=== PATIENT | female | born 1985 | race Caucasian/White ===

== ENCOUNTER 2020-01-25 07:40 | Emergency (ER) | payer MEDICAID ==
--- NOTE | 2020-01-25 08:19 | RADIOLOGY REPORT (SQ) ---
EXAM DESCRIPTION: CHEST 2 VIEWS IMAGES COMPLETED DATE/TIME: 01/25/2020 8:10 am REASON FOR STUDY: chest pain COMPARISON: None. EXAM PARAMETERS: NUMBER OF VIEWS: two views TECHNIQUE: Digital Frontal and Lateral radiographic views of the chest acquired. RADIATION DOSE: NA LIMITATIONS: none FINDINGS: LUNGS AND PLEURA: No opacities, masses or pneumothorax. No pleural effusion. MEDIASTINUM AND HILAR STRUCTURES: No masses or contour abnormalities. HEART AND VASCULAR STRUCTURES: Heart normal size. No evidence for failure. BONES: No acute findings. HARDWARE: None in the chest. OTHER: No other significant finding. IMPRESSION: NO ACUTE RADIOGRAPHIC FINDING IN THE CHEST. TECHNICAL DOCUMENTATION: JOB ID: [id number] [employer]- All Rights Reserved Reading location - IP/workstation name: [email or web address]
[2020-01-25 08:32] LABS: ABSOLUTE BASOPHILS # (AUTO) 0.1 10^3/uL (0.0-0.2); ABSOLUTE LYMPHOCYTES (AUTO) 1.4 10^3/uL (0.5-4.7); ABSOLUTE MONOCYTES (AUTO) 0.2 10^3/uL (0.1-1.4); ABSOLUTE NEUT (AUTO) 2.8 10^3/uL (1.7-8.2); BASOPHILS % (AUTO) 1.3 % (0-2); EOSINOPHILS % (AUTO) 0.9 % (0-6); HEMATOCRIT 39.2 % (36.0-47.0); HEMOGLOBIN 13.5 g/dL (12.0-15.5); MEAN CORPUSCULAR HEMOGLOBIN 30.9 pg (27.0-33.4); MEAN CORPUSCULAR HGB CONC 34.4 g/dL (32.0-36.0); MEAN CORPUSCULAR VOLUME 90 fl (80-97); MONOCYTES % (AUTO) 4.9 % (3-13); PLATELET COUNT 200 10^3/uL (150-450); RED BLOOD COUNT 4.36 10^6/uL (3.72-5.28); SEGMENTED NEUTROPHILS % (AUTO) 61.9 % (42-78); TOTAL CELLS COUNTED % (AUTO) 100 %; WHITE BLOOD COUNT 4.6 10^3/uL (4.0-10.5)
[2020-01-25 08:52] LABS: ALBUMIN 4.7 g/dL (3.5-5.0); ALKALINE PHOSPHATASE 42 U/L (38-126); ANION GAP 6 (5-19); ASPARTATE AMINO TRANSFERASE 21 U/L (14-36); BLOOD UREA NITROGEN 8 mg/dL (7-20); CALCIUM 9.8 mg/dL (8.4-10.2); CARBON DIOXIDE 26 mmol/L (22-30); CHLORIDE 106 mmol/L (98-107); CREATINE KINASE 45 U/L (30-135); GLUCOSE 99 mg/dL (75-110); POTASSIUM 4.4 mmol/L (3.6-5.0); TOTAL PROTEIN 7.7 g/dL (6.3-8.2)
[2020-01-25 09:02] LABS: CREATINE KINASE MB 0.27 ng/mL (<4.55)
[2020-01-25 09:24] LABS: TROPONIN I < 0.012 ng/mL
--- NOTE | 2020-01-25 12:09 | ER Document Report ---
ED General - General Chief Complaint: Chest Pain Stated Complaint: CHEST PAIN Time Seen by Provider: 01/25/20 07:59 - HPI Notes: Chief complaint: Chest pain History of present illness: 34-year-old female with past history of left-sided herpes zoster involving the chest area on number of months ago comes in today reporting that she is intermittently having sharp burning and stabbing sensation across left anterior chest area sometimes worse after eating but not consistently related to exertion or respiration. This is gotten a little worse recently although it tends to be transient and intermittent. She discussed this with her primary care doctor by telephone and was told to come here today for evaluation. Patient notes that at the time of her obstetrical delivery at [facility] several years ago her was told which she "might have had a mini heart attack" she is not aware of any other cardiac history. She says she was not seen by physical anthropologist at that time and did not undergo cardiac catheterization. She is not being treated for hypertension, hyperlipidemia or diabetes mellitus. She has no history of thromboembolic disease. Her family history is remarkable for several older individuals with CAD. She is a non-smoker. HEART Score: HISTORY 1 ECG 0 AGE 0 RISK FACTORS 1 TROPONIN 0 TOTAL: If HEART score is <3 AND both tronponin measurments are normal, the 30 day risk of a major adverse cardiac event (all-cause mortality, myocardia infarction or need for coronary revscularization) is < 1% (Sensitivity 100%, NPV 100%). PERC SCORE (HADCLOTS) H no Hormone administration A Age<50 D no DVT/PE previously C no hemoptysis L no Leg swelling unilaterally O O2 sat >95% T no Tachycardia S no Surgery/Trauma recently - Related Data Allergies/Adverse Reactions: progesterone Allergy (Verified 01/25/20 08:38) aspirin Adverse Reaction (Verified 01/25/20 08:41) Past Medical History - General Information source: Patient - Social History Smoking Status: Never Smoker Frequency of alcohol use: Rare Drug Abuse: None Lives with: Family Family History: CAD - See HPI - Past Medical History Cardiac Medical History: Reports: Hx Heart Attack - mini with "states patient" Denies: Hx Hypercholesterolemia - You want to talk with Dr. Guzman about that, Hx Hypertension, Hx Pulmonary Embolism Pulmonary Medical History: Denies: Hx Asthma, Hx COPD Endocrine Medical History: Reports: None Infectious Medical History: Reports: Other - History of herpes zoster Past Surgical History: Reports: Hx Section - 2018 Review of Systems - Review of Systems Notes: Constitutional: Negative for fever. HENT: Negative for sore throat. Eyes: Negative for visual changes. Cardiovascular: As per HPI. Respiratory: Negative for shortness of breath. Gastrointestinal: Negative for abdominal pain, vomiting or diarrhea. Genitourinary: Negative for dysuria. Musculoskeletal: Negative for back pain. Skin: No current rash. Neurological: Negative for headaches, weakness or numbness. 10 point ROS negative except as marked above and in HPI. Physical Exam - Vital signs Vitals: Temp Pulse Resp BP Pulse Ox 97.7 F 62 20 104/45 L 99 01/25/20 07:49 01/25/20 07:49 01/25/20 07:49 01/25/20 07:49 01/25/20 07:49 - Notes Notes: GENERAL: Well-developed well-nourished appearing in no acute distress. SKIN: Good turgor no rashes. HEAD: Normocephalic atraumatic. EYES: PERRLA. EOMI. Conjunctivae and sclerae clear. EARS: CANALS AND TMS CLEAR. NOSE: CLEAR. MOUTH: Moist mucosa. Good dentition. No stridor or edema. No drooling. NECK: Supple. No masses or thyromegaly. No adenopathy. Carotids 2+ without bruits. No JVD. BACK: Symmetrical without tenderness. CHEST: Chest wall tenderness with exact reproduction of patient's current symptoms. Respirations unlabored. Breath sounds clear and symmetrical. HEART: Regular rhythm. No murmur gallop or rub. ABDOMEN: Soft nontender without masses, organomegaly or rebound. Bowel sounds normally active. No bruits. GENITALIA: Deferred. EXTREMITIES: No edema. No calf tenderness. Cap refill less than 1.5 seconds. Dorsalis pedis and posterior tibial pulses 3+ and symmetrical. NEUROLOGICAL: GCS 15. Alert and oriented x3. Normal gait. Fluent speech. Cranial nerves II through XII intact. Sensorimotor and cerebellar normal. Normal tone. PSYCHIATRIC: Appropriate affect. Course - Re-evaluation Re-evalutation: 01/25/20 12:11 Patient is had 2- troponins and normal EKG here. Chest x-ray is normal. She may have some element of postherpetic neuralgia and clearly appears to be having pain of musculoskeletal origin at this time. I am going to treat her with some topical Zostrix and an oral NSAID and have her follow-up with primary care physician. Findings, clinical impression and plan of treatment have been discussed with patient/family. Understanding of current findings and recommendations has been acknowledged by them and there is agreement regarding disposition and follow-up. - Vital Signs Vital signs: Temp Pulse Resp BP Pulse Ox 97.7 F 62 15 105/58 L 100 01/25/20 07:49 01/25/20 07:49 01/25/20 09:13 01/25/20 09:15 01/25/20 09:13 - Laboratory Result Diagrams: 01/25/20 08:21 01/25/20 08:21 - EKG Interpretation by Me Additional EKG results interpreted by me: 01/25/20 12:14 Twelve-lead EKG from 0746 hrs. reviewed contemporaneously by me demonstrating normal sinus rhythm with a rate of 78 normal intervals and a normal QRS axis of +82 degrees. There are no ST/T wave changes present. There is no old tracing here for comparison. Indication for current study: Chest pain. Discharge - Discharge Clinical Impression: Chest wall pain, Postherpetic neuralgia Condition: Stable Disposition: HOME, SELF-CARE Instructions: Chest Wall Pain ([facility]) Additional Instructions: Take prescribed medications as instructed. Return here as needed for new or worsening symptoms: Pain that is worsening or unimproved Uncontrolled vomiting High fever or shaking chills Overall worsening Follow-up with your primary care provider within the next 3 to 5 days. Prescriptions: Tramadol HCl [Ultram 50 mg Tablet] 50 mg PO Q4HP PRN #12 tab PRN Reason: Capsaicin [Zostrix 0.025% Cream 60 gm] 1 applic TP DAILYP PRN 30 Days #60 tube PRN Reason: Referrals: [facility] [Provider Group] - Follow up as needed
[2020-01-25 12:37] VITALS: BP 111/61
--- NOTE | 2020-01-25 22:11 | EKG REPORT ---
SEVERITY:- BORDERLINE ECG - UNKNOWN RHYTHM, IRREGULAR RATE 66-90 : Confirmed by: Jacy Zapien MD 25-Jan-2020 22:11:15
== END 2020-01-25 12:37 | disposition home or self-care (01) ==
LOC: ER 07:40
DX: B02.29 Other postherpetic nervous system involvement (principal); R07.89 Other chest pain; Z88.8 Allergy status to other drugs, medicaments and biological substances; Z82.49 Family history of ischemic heart disease and other diseases of the circulatory system
CPT/HCPCS: 36415; 71046; 80053; 82550; 82553; 84484; 85025; 93005; 93010; 99284